=== PATIENT | female | born 1990 | race Caucasian/White ===

== ENCOUNTER 2017-04-23 14:50 | Inpatient (IN) | payer MEDICAID, OTHER ==
[~2017-04-23] VITALS: Ht 175.3 cm; Wt 81.6 kg
--- NOTE | 2017-04-24 00:40 | NUR ---
Observations 1900 to 0700 Pt arrived on unit in late evening. Pt ate a snack. Pt was agreeable to signing paperwork and was briefly oriented to room and unit. Pt maintained behavioral control and showed no signs of abnormal behavior. Pt belongings were inventoried. Pt appeared asleep at 0000 and has remained asleep. Pt respirations were observed when asleep. Staff completed 15 min close observations as ordered.
[2017-04-24] MEDS ORDERED: Alum-Mag Hydrox-Simeth 30 mL Suspension PO PRN (03:35)
[2017-04-24] MEDS ORDERED: Benzocaine-Menthol Lozenge 2/Pkg PO PRN (03:35)
[2017-04-24] MEDS ORDERED: Magnesium Hydroxide 10 mL Oral Concentration PO PRN (03:35)
[2017-04-24] MEDS ORDERED: Zolpidem 5 mg Tablet for FEMALE or >65YO PO PRN (03:35)
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
--- NOTE | 2017-04-24 05:53 | NUR ---
Nursing Note Safety Administrator 11pm-7am Patient was in dining room at start of shift. Interviewed patient, who was calm and cooperative in answering all questions asked. She reported anxiety 10/10; denied any depression, SI/HI, A/V hallucinations. Following admission interview, patient returned to room and was noted to be asleep at 0000 and through the remainder of the night. Patient slept 6+ hours. Pt monitored q 15 minutes for safety, location and accountability.
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
[2017-04-24 16:14] VITALS: BP 152/99; PULSE 115; RESP 18
--- NOTE | 2017-04-24 16:18 | NUR ---
[id number]. nurs. S: "Do you think I will be able to go home on Saturday." O: Pt stating that she has no SI, that she has not had any SAs in past. Pt reports long hx of depression and panic attacks ,some hypertensive tendency and hx of rapid HR. Pt stating a strong family hx of these pxs on father side of family. 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 Pt describes many negative features of prev. relationship states relationship "over" and that she has support of family to move forward and that she had used ETOH within prev. relationship but would not be able to living at home. Pt reporting using 5-6 beers 3x week, pt states has stopped using before, and no pxs with withdrawal. Pt out on unit wanting to participate in program to facilitate hoped for discharge home on Saturday. A: Pt anxious after phone call with marleny david. events leading to admission and possible legal pxs resulting. Pt given vistaril 50mg and reported that med had helped, pt reporting hopefulness that she can establish her,self independently and desire to be with children. P:CNCP
--- NOTE | 2017-04-24 18:18 | NUR ---
Business Office Representative/Counselor: S:"I was upset because I broke up with my boyfriend." O: Patient slept 6+ hours last night per staff. Patient denies S/I and H/I. She also denies auditory and visual hallucinations. Depression is 0/10 and anxiety is 5/10. A: Patient is cooperative, anxious, depressed, fair insight, fair judgment. P: Follow the care plan, coordinate with out-patient providers.
--- NOTE | 2017-04-24 18:33 | NUR ---
[facility] Day Shift Pt maintained behavioral control throughout the shift. Pt affect appears mostly flat, but bright and interactive when engaged. Pt spends most of the shift engaging in unit activities and sitting quietly in the dining room. Pt is pleasant with staff and peers when active on the unit. Pt occasionally occasionally reports panic attacks throughout the shift, and also reports "not feeling well" (pt complains of shifting temperature). Pt attended all meals and ate approx 80% of all meals.
--- NOTE | 2017-04-25 05:05 | NUR ---
nursing, nights, 11-7 s/o- has appeared to sleep after 2300 during q 15 minute assessments. a- no apparent distress. p- monitor behavior/emotional state, quality, times and amount of sleep, use and effect of medication. amanda
--- NOTE | 2017-04-25 13:18 | PROG NOTE ---
[address] [address] PROGRESS NOTE PATIENT: JAROD PITTMAN I : 1990 MR#: [id number] ADMIT: 04/23/2017 JOB ID: [id number] DATE: 04/25/2017 CHIEF COMPLAINT: "I think I will be ready to go tomorrow." This per patient report. HISTORY OF PRESENT ILLNESS: As stated above, the patient identified that she has had no further suicidal thoughts and openly identified significant regret and remorse in reference to antecedents that occurred prior to her hospitalization. The patient states that she knows that she drank way too much and lost control. She readily identifies a willingness to continue with aftercare followup appointments in [place]. She indicated that she previously had been connected with individuals at the [facility]. She reports that she would be willing to take a bus ride to [place] and potentially get a ride home from her parents at that time. OBJECTIVE: On mental status exam, she was bright, cooperative, interactive. She denied any evidence of acute distress. She was casually dressed in her own attire. Her speech is of normal tone, frequency, and volume. Her mood was neutral, her affect congruent. Her thought process showed no evidence of random flight of ideas, loose or disconnected thinking. Thought content: She denied any evidence of current suicidal, homicidal ideation. No evidence of active hallucinations, delusions. She was alert, oriented to person, place, time, situation. Attention and concentration intact. Memory intact in the short term, terminal make up operator, and recent. Insight and judgment are fair. PHYSICAL EXAMINATION: Vital signs of current: Temperature is 36.2, pulse 115, respirations 18, BP 152/99. MEDICATION REVIEW: Includes Prozac 20 mg q.a.m. ASSESSMENT: Lequire I: 1. Major depressive disorder, recurrent type, nonpsychotic. 2. Alcohol use disorder, intermittent, episodic. Lequire II: Deferred. Lequire III: None. Lequire IV: Stressors are noted for recent breakup with boyfriend, transition of life. Lequire V: Global Assessment of Functioning of current 40. PLAN: 1. Recommendations to discharge to the care of self with a plan of transition back to her family's home. 2. Continuation of services through [facility] in [place]. Appointments to be scheduled for both individual therapy and medication management via manager of case. 3. Recommendations for continuation of Prozac 20 mg daily. One month's supply will be given.
[2017-04-25 14:01] VITALS: BP 132/85; PULSE 91; RESP 16
--- NOTE | 2017-04-25 15:29 | PCM.DIMED ---
Discharge Instructions Date of Service Apr 25, 2017 Dates of Hospitalization Apr 23, 2017 at 22:39 Discharge Diagnosis Discharge Diagnosis Major Depression Recurrent nonpsychotic Panic DO without agoraphobia Alcohol Use Do episodic Diet Discharge Diet: No restrictions Activity Discharge Activity: No restrictions Rajinder Ojeda DO Apr 25, 2017 15:29
[2017-04-25] MEDS ORDERED: FLUO20CA25 PO (15:30)
[2017-04-25] MEDS ORDERED: HYDR50CA3 PO (15:30)
--- NOTE | 2017-04-25 18:31 | NUR ---
Glazing Department Supervisor/Counselor: S:"I'm ready to discharge tomorrow." O: Patient slept 7 hours last night per staff. Patient denies S/I and H/I. She also denies auditory and visual hallucinations. Depression is 0/10 and anxiety is "a little bit"/10. A: Patient is cooperative, anxious, depressed, fair insight, fair judgment. P: Follow the care plan, coordinate with out-patient providers.
--- NOTE | 2017-04-25 18:55 | NUR ---
[facility] Day Shift Pt maintained behavioral control throughout the shift. Pt affect appears mostly flat, but bright and interactive when engaged. Pt spends most of the shift engaging in unit activities and sitting quietly in the dining room. Pt is pleasant with staff and peers when active on the unit. Pt has not reported any panic attacks to this staff writer throughout the shift. Pt attended community meeting in the AM and all group activities throughout the shift. Pt attended all meals and ate approx 80% of all meals.
--- NOTE | 2017-04-25 19:29 | NUR ---
[id number]. nurs. S/O: Pt stating that she has no SI, no depression, and no anxiety, that she is ready for, and looking forward to discharge home to her parents home where her children are staying, and pt will be living for next period of time. Pt stating she will be able to work at home and earn some income while working at job she hopes to have on return home. Pt with bright affect out on unit participating and on phone a lot with mother. Pt has discharge instructions is working on safety plan and has ticket for bus at 0830 and needs to be there at 0800 to get ticket arranged and taxi will take her there at 0745 in am.
--- NOTE | 2017-04-25 23:40 | NUR ---
Nurses Note Evening Patient has been cheerful,pleasant and polite eager for discharge in the am. Patient denied depression,anxiety or feelings of self harm. Patient will be returning home via bus, ticket and password purchased for an eight am departure. [employer] cab to pickup at [phone]. Report given to maintenance mechanic 2nd shift. Addendum: 04/25/17 at 9053 by ANITHA ROSENTHAL RN Amended: Links added.
--- NOTE | 2017-04-26 05:49 | NUR ---
Nursing Note Historic Site Administrator 7pm-7am Patient was in group room at start of shift. She will be discharging first thing this morning, so discharge paperwork was signed and completed in preparation for early discharge. Patient will be picked up at 0730 by cab and taken to bus station for return to [place]. Patient was informed of, and was agreeable to, discharge plan. After completing discharge interview, patient returned to room. Came out for evening snack and requested Vistaril 50 mg at 2118, returned to room and was noted to be asleep at 2245. Patient slept 7.25 hours. Pt monitored q 15 minutes for safety, location and accountability.
--- NOTE | 2017-04-26 07:30 | NUR ---
Discharge Patient ambulated from unit accompanied by staff to a cab, for transportation to the bus station. Patient to take bus back to [facility]. Patient Alert and oriented at time of discharge and agreeable to plan. Discharge instructions/medications reviewed with patient prior to discharge. All questions addressed. Discharge instructions, patient belongings, prescriptions and travel plans in hand.
--- NOTE | 2017-04-26 18:50 | NUR ---
It Security Specialist/Counselor: S:"My parents will pick me up in [place] at the bus station." O: Patient slept 7.25 hours last night per staff. Patient denies S/I and H/I. She also denies auditory and visual hallucinations. Depression is 0/10 and anxiety is "a little bit"/10. Patient will be called by Diana Kaur of [facility] to schedule out-patient appointment with their agency. A: Patient is cooperative, anxious, fair insight, fair judgment. P: Follow the care plan, coordinate with out-patient providers.
--- NOTE | 2017-04-27 00:13 | DIS ---
[address] [address] DISCHARGE SUMMARY PATIENT: JAROD PITTMAN I : 1990 MR#: [id number] ADMIT: 04/23/2017 JOB ID: [id number] DIS: 04/26/2017 ADMITTING DIAGNOSES: AXIS I: 1. Major depressive disorder, recurrent type, non psychotic. 2. Generalized anxiety disorder. 3. Panic disorder without agoraphobia. 4. Alcohol use disorder, episodic. AXIS II: Borderline personality features. AXIS III: None. AXIS IV: Stressors were noted for transition of life, inappropriate type coping, recent breakup of relationship. AXIS V: Global Assessment of Functioning current 30. DISCHARGE DIAGNOSES: AXIS I: 1. Major depressive disorder, recurrent type, non psychotic. 2. Panic disorder without agoraphobia. 3. Alcohol use disorder, episodic. AXIS II: Borderline personality disorder. AXIS III: None. AXIS IV: Stressors were noted for coping. AXIS V: Global Assessment of Functioning current 40. REASON FOR ADMISSION: Patient was a 26-year-old female who reportedly was admitted under detainment with transfer from [facility] with significant evidence of suicidal attempt of 20 tablets of Effexor under the influence of alcohol. During the course of hospitalization, patient did show significant gains of insight into the need of alternative coping and also agreed to continue with outpatient services of individual therapy. She indicated that she had been maintained on Effexor since the age of 18 and really felt that it was not that effective for her treatment of factors of anxiety and panic. She was agreeable to substitute initiation of Prozac 20 mg daily combined with p.r.n. usage of Vistaril and stated that she felt much better and calmer on the medication combinations. CONDITION AT TIME OF DISCHARGE: Patient's mood and affect were stable. She denied any evidence of current suicidal, homicidal ideation. No evidence of active hallucinations, delusions. She was alert, oriented to person, place, time, situation. Attention and concentration intact. Insight and judgment were fair. DISCHARGE PLANS: Include: 1. Follow up with outpatient care for individual therapy, medication management per Case Management. 2. Continuation of Prozac 20 mg daily one month supply, no refills. Reason for usage: Antidepressant. 3. Continuation of Vistaril 50 mg t.i.d. p.r.n., one month supply, no refills. Reason for usage: Anxiety.
== END 2017-04-26 07:30 | disposition home or self-care (01) | DRG 885 ==
LOC: MHC 22:39
PROVIDERS: ADMIT Psychiatry & Neurology Psychiatry; ATTEND Psychiatry & Neurology Psychiatry
DX: F33.2 Major depressive disorder, recurrent severe without psychotic features (principal); F41.0 Panic disorder [episodic paroxysmal anxiety]; T43.212A Poisoning by selective serotonin and norepinephrine reuptake inhibitors, intentional self-harm, initial encounter; Z65.3 Problems related to other legal circumstances; Z63.0 Problems in relationship with spouse or partner; F41.1 Generalized anxiety disorder; F10.10 Alcohol abuse, uncomplicated